=== PATIENT | female | born 1980 | race African-American/Black ===

== ENCOUNTER 2018-12-01 15:18 | Emergency (ER) | payer SELFPAY ==
[~2018-12-01] VITALS: Ht 157.5 cm; Wt 59.0 kg
[2018-12-01] MEDS ORDERED: ONDANSETRON HCL 4MG/2ML INJ IV STA (18:13)
[2018-12-01] MEDS ORDERED: SODIUM CHLORIDE 0.9% 1,000 ML IV ONE (18:13)
[2018-12-01 18:45] LABS: BASOPHILS % 1.2 % (0.0-2.0); EOSINOPHILS % 1.5 % (0.0-5.0); HEMATOCRIT. 36.1 % (36.0-48.0); HEMOGLOBIN. 11.7 g/dL (12.0-16.0); LYMPHOCYTES % 25.1 % (20.0-50.0); MEAN CORPUSCULAR HEMOGLOBIN 26.5 pg (28.0-32.0); MEAN CORPUSCULAR VOLUME 82.1 fL (81.0-99.0); MEAN PLATELET VOLUME 9.9 fl (7.4-10.4); NEUTROPHILS % 66.2 % (40.0-76.0); PLATELET 199 x1000/uL (130-400); RED CELL DISTRIBUTION WIDTH 17.2 % (11.6-14.6)
[2018-12-01 18:49] LABS: CHLORIDE 109 mEq/L (98-107)
[2018-12-01 19:32] VITALS: BP 111/66
== END 2018-12-01 21:56 | disposition home or self-care (01) ==
LOC: ER 15:18
DX: K59.00 Constipation, unspecified (principal); R42 Dizziness and giddiness; E86.0 Dehydration; Z98.890 Other specified postprocedural states
CPT/HCPCS: 36415; 80053; 81025; 84484; 85025; 93005; 96374; 99284; J2405; J7030

== ENCOUNTER 2019-02-23 09:38 | Emergency (ER) | payer OTHER ==
[~2019-02-23] VITALS: Ht 157.5 cm; Wt 60.0 kg
[2019-02-23 12:00] VITALS: BP 128/84
== END 2019-02-23 12:01 | disposition home or self-care (01) ==
LOC: ER 09:38
DX: R06.02 Shortness of breath (principal); Z98.890 Other specified postprocedural states
CPT/HCPCS: 71045; 81025; 93005; 99283